=== PATIENT | female | born 1975 | race Caucasian/White ===

== ENCOUNTER → 2016-05-21 10:42 | Day surgery (SDC) | payer OTHER ==
[~2016-05-21 10:42] MED LIST: Buffered Lidocaine 1% SYRIN* 3 ML/SYR SYRINGE INTRADERM ONE; Bupivacaine 0.25% EPI 200,000* 30 ML SDV ONE; Bupivacaine 0.25% SDV* 30 ML ONE; Dexamethasone IV* 4 MG/ML 1 ML (4 MG) IV SLOW PU ONE; Dexamethasone IV* 4 MG/ML 1 ML (4 MG) ONE; Famotidine IV* 10 MG/ML 2 ML (20 mg) IV ONE; Famotidine IV* 10 MG/ML 2 ML (20 mg) ONE; Labetalol IV* 5 MG/ML 20 ML VIAL ONE; Lidocaine 2% PF* 5 ML VIAL ONE; Midazolam* 1 MG/ML 2 ML VIAL (2 MG) ONE; Ondansetron INJ* 2 MG/ML VIAL ONE; PROCHLORPERAZINE INJ 5 MG/ML 2 ML VIAL IV PRN; Propofol* 10 MG/ML 20 ML BTL IV PUSH ONE; ROPIVACAINE 5 MG/ML 30 ML BTL (0.5%) ONE; Rocuronium* 10 MG/ML VIAL ONE; ceFAZolin 2 GM PREMIX(*) 2 GM/50 ML BAG IVPB ONE; fentaNYL* 50 MCG/ML 2 ML VIAL (100 MCG VIAL) IV PRN; fentaNYL* 50 MCG/ML 2 ML VIAL (100 MCG VIAL) ONE; oxyCODONE/Acetamin 5/325 MG* TAB PO PRN
[2016-05-21 17:38] VITALS: BP 138/78
--- NOTE | 2016-05-22 10:33 | OP ---
DATE OF OPERATION: 05/21/16 - [facility] DATE OF : 71 ATTENDING SURGEON: Mindy Schwartz MD. ASSISTANTS: VICTORINO Arauz. An assistant buyer was needed for the entirety of case to help with positioning, retraction, and was utilized throughout all portion of the case. ANESTHESIOLOGIST: Lanette Graves MD. ANESTHESIA: General with interscalene block. PRE-OP DIAGNOSES: Right shoulder full-thickness rotator cuff tear of the supraspinatus tendon, biceps tendonitis and acromioclavicular joint arthritis. POST-OP DIAGNOSES: Right shoulder full-thickness rotator cuff tear of the supraspinatus tendon, biceps tendonitis and acromioclavicular joint arthritis. OPERATIVE PROCEDURES: 1. Right shoulder arthroscopy with glenohumeral debridement. 2. Subacromial decompression with acromioplasty. 3. Rotator cuff repair, double row. 4. Distal clavicle excision. 5. Subpectoral biceps tenodesis. ESTIMATED BLOOD LOSS: Minimal. COMPLICATIONS: None. IMPLANTS USED: Two Garza and Nephew 4.75 Healicoil and one Multifix, one Q-Fix anchor. INDICATIONS: Kylee Tse is a 41-year-old, thin, right-hand dominant female who tore her rotator cuff over a year ago. She had persistent pain. She was unable to get surgery until now due to personal issues. She has failed conservative management. She had some relief with injections that was temporary , where she has persistent pain and limitations in her activities at work. After extensive discussion, the risks and benefits to conservative versus operative management, the patient has agreed to proceed with surgery. Risks include but are not limited to, bleeding, infection, damage to nerves, vessels, surrounding structures, wound nonhealing, persistent pain, need for further surgery, stiffness, scarring, incomplete relief of symptoms, need for further surgery or failure of the repair, risks of DVT, and risks of anesthesia. She has elected to proceed. DESCRIPTION OF PROCEDURE: The patient was greeted in the preoperative area by the attending surgeon, the correct extremity was marked and the consent was confirmed. The patient was then brought back to the operating suite where she was placed in a supine position on the operating table. She then underwent interscalene nerve block by the attending anesthesiologist, which she tolerated without difficulty, after which the patient then underwent general anesthesia with endotracheal intubation. At this point, the patient was placed in the left lateral decubitus position. An axillary roll was placed and she was secured with a peg board. Her right arm was draped unsterile from the traction frame with 10 pounds of traction. The right arm was then prepped and draped in the usual sterile fashion, beginning with chlorhexidine scrub and alcohol wipe and the final prep with ChloraPrep. After appropriate surgical pause indicating side, site, procedure, and administration of antibiotics, the standard postero-lateral portal was made sharply with an 11 blade. The scope was introduced into the subacromial space. There was difficulty accessing the joint, therefore the subacromial work was done first. There is abundant bursa was that was present and a rotator cuff tear was present, a full-thickness supraspinatus anteriorly based tear. There was a moderate-sized anterolateral spur as well as AC joint arthritis. Decompression was then done and using the shaver device after the lateral portal was made in an outside-in fashion, then the AP joint was visualized and under needle localization, the anterior portal was then made to facilitate access to the AC joint. From this perspective, the switching stick was then placed after needle localization into the anterior recess of the shoulder joint. Once this was found, the switching stick was placed. Then cannulas were used to dilate and the scope was placed through the anterior cannula. This was found to visualize the glenohumeral joint, which had abundant tissue inside the joint itself. This facilitated access posteriorly and the posterior portal was then made in the usual standard fashion. The glenohumeral joint was examined. The biceps, there was evidence of damage to the ted with some mild irritation to the subscapularis. There was abundant thick tissue that was present anteriorly, that was similar to what is seen in adhesive capsulitis, but it was not taut tissue. The glenohumeral joint had grade 0 to 1 changes. The anterior posterior labrum had unstable fraying, superior labrum had unstable fraying and therefore a biceps tenotomy was done. The rotator cuff was found to have a full-thickness tear, supraspinatus tendon through the undersurface of the cuff. Anterior recess was intact. After the glenohumeral debridement was complete, attention was directed back to the subacromial space. At this point, the acromioplasty was done using a 4-0 oval beatrice, this then allowed us to co-plane the distal clavicle. All loose debris was removed and then attention was directed to the distal clavicle. The beatrice was positioned through the anterior portal, then under direct observation, 8 mm of the distal clavicle was carefully removed. There was abundant arthritis and the joint was quite stenotic. The bone was quite hard. Two burrs were required to debride the bone. Once adequate resection was done, the clavicle was then manipulated and there was no more impingement apparent. Next, attention was directed to the rotator cuff. The electrocautery device was used to complete the full tear to release the remaining supraspinatus tendon that was partially torn. The shaver was used to debride the edges back. The shaver, the electrocautery device, the rasp were all used to prepare the greater tuberosity. Once this was prepared, by gently decorticating the bone, two Healicoil anchors were placed. The bone quality was quite hard; therefore, the awl and tap had be used prior to anchor placement. The anchors were placed with excellent fixation. The sutures were passed through the cuff to the tissue, which had very good quality tissue. These were passed in a mattress configuration, then tied down. One strand of each knot was kept for later passes through a second anchor for double row fixation. Once the Multifix anchor was used to secure all four remaining sutures into the lateral row and this allowed to appropriately restore the footprints. The shoulder was taken through gentle range of motion and was found to be intact. All fluid and debris were removed from the shoulder at this point. Attention was directed to the biceps. The bed was airplaned to the right side. The anterior aspect of the shoulder was prepped again using ChloraPrep and a 15 blade was then used to make an incision in line with the biceps, encompassing the inferior two-thirds of the pec tendon. The soft tissues were carefully dissected using Metzenbaum scissors. Once the pectoralis fascia was identified, all the remainder dissection was done bluntly. The pec tendon was retracted superiorly. The biceps groove was palpated. The biceps was subluxed out of the groove. Carefully, the biceps screw was then nicked using the electrocautery device and the biceps was then removed using a right angle clamp. This was then brought through the wound and an image was obtained. There was tendinopathy and scarring of the biceps. The biceps groove was then prepped in the usual fashion with electrocautery device, the rasp and then the osteotome to allow for bleeding bony bed. The Q- Fix anchor was then unicortically drilled and deployed with excellent purchase. The sutures were then passed through the tendon approximately 1 cm proximal to the musculotendinous junction in a Iuhad-Ilrap-afpl configuration. The excess stump was then sharply excised and the biceps shuttled back into the wound and tied down. The wounds were copiously irrigated. The portals were closed with 0 nylon. The anterior wound was closed in layers of 2-0 Vicryl and 3-0 Monocryl. Sterile dressings were applied. 20 cc of Marcaine was injected into the anterior wound. A Cryo/Cuff as well as an UltraSling were placed. The patient was awoken from anesthesia and transferred to the PACU in stable condition. POSTOPERATIVE PLAN: She will be in a splint for 6 weeks. She will be nonweightbearing. She will be allowed to work on range of motion of her elbow, wrist, and hand and allow pendulums. She will be discharged on pain medication as well as antibiotics. DVT prophylaxis was considered and discussed, but deferred due to her previous personal or family history. I will see the patient back in 10 to 14 days. [id number]/[facility] #: [id number] DEB
== END | disposition home or self-care (01) ==
LOC: OREAST 10:42
PROVIDERS: ATTEND Orthopaedic Surgery
DX: M75.121 Complete rotator cuff tear or rupture of right shoulder, not specified as traumatic (principal); S46.101D Unspecified injury of muscle, fascia and tendon of long head of biceps, right arm, subsequent encounter; F41.9 Anxiety disorder, unspecified; K21.9 Gastro-esophageal reflux disease without esophagitis; M19.211 Secondary osteoarthritis, right shoulder; F17.200 Nicotine dependence, unspecified, uncomplicated; M65.9 Synovitis and tenosynovitis, unspecified
CPT/HCPCS: 88304; C1713; C1776; J0690; J1100; J2250; J2405; J2704; J2795; J3010

== ENCOUNTER 2017-02-20 15:27 | Emergency (ER) | payer OTHER ==
[2017-02-20 16:37] VITALS: BP 130/89
--- NOTE | 2017-02-20 16:38 | UC ---
Hip/Pelvis Pain - HPI Summary HPI Summary: 41 year old female presents with right upper thigh pain. - History Of Current Complaint Chief Complaint: UCLowerExtremity Stated Complaint: RIGHT HIP PAIN Time Seen by Provider: 02/20/17 16:38 Hx Obtained From: Patient Hx Last Menstrual Period: 12/10/15 ?: Yes Onset/Duration: Sudden Onset Severity Initially: Moderate Severity Currently: Moderate Pain Scale Used: 0-10 Numeric - 8 Character Of Pain: Throbbing Aggravating Factor(s): Weight Bearing - Allergies/Home Medications Allergies/Adverse Reactions: Allergies Allergy/AdvReac Type Severity Reaction Status Date / Time Shellfish-derived Products Allergy Severe Anaphylatic Verified 05/21/16 10:59 Shock Naproxen [From Naprosyn] Allergy Intermediate Hives Verified 05/21/16 10:59 Gabapentin Allergy Altered Verified 02/20/17 16:37 Mental Status PMH/Surg Hx/FS Hx/Imm Hx Previously Healthy: Yes - Surgical History Surgical History: Yes Surgery Procedure, Year, and Place: appy , [place]. gastric bipass [place]. , intraceception 2009 [place]. REMOVED SCAR TISSUE FROM ABDOMIN DONE 5 TIMES AFTER LOOSING WT [place]. 2003 GALL BLADDER [place]. 1987 LAPRASCOPIC SURGERY RIGHT KNEE [facility]. RT OOPHORECTOMY [place] - Family History Known Family History: Positive: Hypertension - Social History Alcohol Use: Weekly Alcohol Amount: 2-4 DRINKS/WEEK Substance Use Type: None Smoking Status (MU): Light Every Day Tobacco Smoker Type: Cigarettes Amount Used/How Often: 1 SINCE AGE 10 Length of Time of Smoking/Using Tobacco: 20 Years (Quit for 7) Have You Smoked in the Last Year: Yes When Did the Patient Quit Smoking/Using Tobacco: Dec 2013 Household Exposure Type: Cigarettes - Immunization History Most Recent Influenza Vaccination: Not the 2015/2015 Season Most Recent Pneumonia Vaccination: NOV 2012 Review of Systems Constitutional: Negative Skin: Negative Eyes: Negative ENT: Negative Respiratory: Negative Cardiovascular: Negative Gastrointestinal: Negative Genitourinary: Negative Motor: Negative Neurovascular: Negative Musculoskeletal: Other: - right upper thigh pain Neurological: Negative Psychological: Negative All Other Systems Reviewed And Are Negative: Yes Physical Exam Triage Information Reviewed: Yes Vital Signs: Initial Vital Signs Temp 37.3 C 02/20/17 16:34 Pulse 82 02/20/17 16:34 Resp 16 02/20/17 16:34 BP 130/89 02/20/17 16:34 Pulse Ox 100 02/20/17 16:34 Vital Signs Reviewed: Yes Eye Exam: Normal ENT Exam: Normal Dental Exam: Normal Neck exam: Normal Neck: Positive: 1 Respiratory Exam: Normal Cardiovascular Exam: Normal Abdominal Exam: Normal Musculoskeletal: Positive: Other: - right upper thigh pain Neurological Exam: Normal Psychological Exam: Normal Skin Exam: Normal Hip Injury Course/Dx - Differential Dx/Diagnosis Provider Diagnoses: right upper thigh pain Discharge - Discharge Plan Condition: Stable Disposition: OTHER Discharge Disposition Comment: patient suggested to go to the er Patient Education Materials: Hip Sprain (ED) Referrals: Kleber Baker PA [Primary Care Provider] - Additional Instructions: patient suggested to go to the er for right thigh pain and rule out dvt
== END 2017-02-20 16:46 ==
LOC: UCCORT 15:27
DX: M79.651 Pain in right thigh (principal); Z72.0 Tobacco use; Z72.89 Other problems related to lifestyle
CPT/HCPCS: 99212; G0463

== ENCOUNTER 2017-04-22 15:15 | Emergency (ER) | payer OTHER ==
[2017-04-22 15:35] VITALS: BP 118/79
--- NOTE | 2017-04-22 15:48 | ED ---
Throat Pain/Nasal Congestion - HPI Summary HPI Summary: 42 yr female with right ear pain and sinus congestion, post nasal drip progressive worse over 5-6 days. She states she has had fever and chills. Pain is moderate in the right ear. No other complaints. - History of Current Complaint Chief Complaint: UCGeneralIllness Time Seen by Provider: 04/22/17 15:33 - Allergies/Home Medications Allergies/Adverse Reactions: Allergies Allergy/AdvReac Type Severity Reaction Status Date / Time MS Shellfish-derived Products Allergy Severe Anaphylatic Verified 04/22/17 15:35 [Shellfish-derived Products] Shock MS Naproxen [From Naprosyn] Allergy Intermediate Hives Verified 04/22/17 15:35 MS Gabapentin [Gabapentin] Allergy Altered Verified 04/22/17 15:35 Mental Status PMH/Surg Hx/FS Hx/Imm Hx Endocrine/Hematology History: Denies: Hx Diabetes Cardiovascular History: Denies: Hx Hypertension, Hx Pacemaker/ICD GI History: Reports: Hx Gastroesophageal Reflux Disease - ON MED DAILY History: Reports: Hx Kidney Stones - Hx OF 2011, PASSED Denies: Hx Renal Disease Musculoskeletal History: Reports: Hx Arthritis - RT SHOULDER Sensory History: Reports: Hx Contacts or Glasses - GLASSES Denies: Hx Hearing Aid Opthamlomology History: Reports: Hx Contacts or Glasses - GLASSES Psychiatric History: Denies: Hx Panic Disorder - Surgical History Surgery Procedure, Year, and Place: appy , [place]. gastric bipass [place]. , intraceception 2009 [place]. REMOVED SCAR TISSUE FROM ABDOMIN DONE 5 TIMES AFTER LOOSING WT [place]. 2003 GALL BLADDER [place]. 1987 LAPRASCOPIC SURGERY RIGHT KNEE [facility]. 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, ~ 2004 Denies: Traveled Outside the [place] in Last 30 Days - Family History Known Family History: Positive: Hypertension - Social History Alcohol Use: Weekly Alcohol Amount: 2-4 DRINKS/WEEK Substance Use Type: Reports: None Smoking Status (MU): Light Every Day Tobacco Smoker Type: Cigarettes Amount Used/How Often: 1 SINCE AGE 10 Length of Time of Smoking/Using Tobacco: 20 Years (Quit for 7) Have You Smoked in the Last Year: Yes Review of Systems Positive: Fever, Chills Positive: Ear Ache, Nasal Discharge, Other - sinus pressure All Other Systems Reviewed And Are Negative: Yes Physical Exam Triage Information Reviewed: Yes Vital Signs On Initial Exam: Initial Vitals Temp Pulse Resp BP Pulse Ox 99.5 F 71 16 118/79 100 04/22/17 15:31 04/22/17 15:31 04/22/17 15:31 04/22/17 15:31 04/22/17 15:31 Vital Signs Reviewed: Yes Appearance: Positive: Well-Appearing, No Pain Distress Skin: Positive: Warm, Skin Color Reflects Adequate Perfusion Head/Face: Positive: Normal Head/Face Inspection Eyes: Positive: EOMI ENT: Positive: Pharynx normal, TM red - right ear with effusion, and bulging with some erythema, Sinus tenderness Neck: Positive: Nontender Respiratory/Lung Sounds: Positive: Clear to Auscultation, Breath Sounds Present Cardiovascular: Positive: RRR. Negative: Murmur Abdomen Description: Positive: Nontender Musculoskeletal: Positive: Strength/ROM Intact Neurological: Positive: Sensory/Motor Intact, Alert, Oriented to Person Place, Time, CN Intact II-III Psychiatric: Positive: Normal - Angelia Coma Scale Best Eye Response: 4 - Spontaneous Best Motor Response: 6 - Obeys Commands Best Verbal Response: 5 - Oriented Coma Scale Total: 15 Diagnostics - Vital Signs Vital Signs Temp Pulse Resp BP Pulse Ox 04/22/17 15:31 99.5 F 71 16 118/79 100 - Laboratory Lab Statement: Any lab studies that have been ordered have been reviewed, and results considered in the medical decision making process. EENT Course/Dx - Course Course Of Treatment: 42 yr old female with right OM and sinusitis. Rx with augmentin. - Diagnoses Provider Diagnoses: Sinusitis, Otitis media Discharge - Discharge Plan Condition: Good Disposition: HOME Prescriptions: Amoxicillin/Clavulanate TAB* [Augmentin TAB 875*] 875 mg PO BID #20 tab Patient Education Materials: Sinusitis (ED), Ear Infection (ED) Referrals: Kleber Baker PA [Primary Care Provider] - 2 Days
== END 2017-04-22 15:52 | disposition home or self-care (01) ==
LOC: UCCORT 15:15
DX: J32.9 Chronic sinusitis, unspecified (principal); H66.91 Otitis media, unspecified, right ear; Z88.8 Allergy status to other drugs, medicaments and biological substances; Z91.013 Allergy to seafood; F17.210 Nicotine dependence, cigarettes, uncomplicated
CPT/HCPCS: 99212; G0463

== ENCOUNTER 2018-02-26 14:06 | Emergency (ER) | payer OTHER ==
[2018-02-26 15:13] VITALS: BP 151/88
--- NOTE | 2018-02-26 16:22 | UC ---
Upper Extremity HPI - HPI Summary HPI Summary: 42 y/o female with no pmh, no medications, while reaching up this afternoon, looking up, had pain between shoulder and neck, sharp- 4/10 at rest, 7/10 with movemnet. no improvement with massage at work, anti-inflammatory. mild tingling in finger tips, no other symptoms. no trauma, no neck complaints in past. sensation intact. - History of Current Complaint Chief Complaint: UCBackPain Stated Complaint: NECK PAIN Time Seen by Provider: 02/26/18 16:03 Hx Obtained From: Patient Hx Last Menstrual Period: 04/10/17 Onset/Duration: Sudden Onset, Lasting Hours Severity Initially: Moderate Severity Currently: Moderate Pain Intensity: 7 Pain Scale Used: 0-10 Numeric - Allergies/Home Medications Allergies/Adverse Reactions: Allergies Allergy/AdvReac Type Severity Reaction Status Date / Time shellfish derived Allergy Severe Anaphylatic Verified 02/26/18 15:15 Shock naproxen Allergy Intermediate Hives Verified 02/26/18 15:15 gabapentin Allergy Altered Verified 02/26/18 15:15 Mental Status PMH/Surg Hx/FS Hx/Imm Hx Previously Healthy: Yes - Surgical History Surgical History: Yes Surgery Procedure, Year, and Place: appy ', [place]. gastric bipass [facility]. , intraceception 2009 [place]. REMOVED SCAR TISSUE FROM ABDOMIN DONE 5 TIMES AFTER LOOSING WT [place]. 2003 GALL BLADDER [place]. 1987 LAPRASCOPIC SURGERY RIGHT KNEE [facility]. RT OOPHORECTOMY [place] - Family History Known Family History: Positive: Hypertension - Social History Alcohol Use: Weekly Alcohol Amount: 2-4 DRINKS/WEEK Substance Use Type: None Smoking Status (MU): Light Every Day Tobacco Smoker Type: Cigarettes Amount Used/How Often: 1 SINCE AGE 10 Length of Time of Smoking/Using Tobacco: 20 Years (Quit for 7) Have You Smoked in the Last Year: Yes When Did the Patient Quit Smoking/Using Tobacco: Dec 2013 Household Exposure Type: Cigarettes - Immunization History Most Recent Influenza Vaccination: Not the 2015/2015 Season Most Recent Pneumonia Vaccination: NOV 2012 Review of Systems All Other Systems Reviewed And Are Negative: Yes Musculoskeletal: Positive: Arthralgia, Myalgia Is Patient Immunocompromised?: No Physical Exam Triage Information Reviewed: Yes Appearance: Well-Appearing, No Pain Distress, Well-Nourished Vital Signs: Initial Vital Signs Temp 98.4 F 02/26/18 15:09 Pulse 77 02/26/18 15:09 Resp 16 02/26/18 15:09 BP 151/88 02/26/18 15:09 Pulse Ox 100 02/26/18 15:09 Vital Signs Reviewed: Yes Eyes: Positive: Conjunctiva Clear Musculoskeletal: Positive: Strength Intact - R upper extremity- shoulder full ROM, strength 5/5, 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 TTP over trap R side with muscle spasms palpable at anterior mid. full ROM of neck, non-tender to palpation over neck. Neurological: Positive: Alert, Muscle Tone Normal Psychological Exam: Normal Skin Exam: Normal Upper Extremity Course/Dx - Course Course Of Treatment: muscle spams, valium for muslce relaxer given, prednisone x 3 days, lidoderm patch for pain - Differential Dx/Diagnosis Differential Diagnosis/HQI/PQRI: Bursitis, Contusion Provider Diagnosis: Muscle spasm Discharge - Sign-Out/Discharge Documenting (check all that apply): Patient Departure All imaging exams completed and their final reports reviewed: No Studies - Discharge Plan Condition: Good Disposition: HOME Prescriptions: Diazepam TAB(*) [Valium TAB(*)] 5 mg PO BEDTIME PRN #5 tab MDD 1 PRN Reason: muscle spasm Lidocaine PATCH 5%* [Lidoderm 5% Patch*] 1 patch TRANSDERM DAILY #10 patch predniSONE [Prednisone 20 MG TAB] 20 mg PO DAILY #3 tablet Patient Education Materials: Muscle Spasm (ED) Forms: *Work Release Referrals: Kleber Baker PA [Primary Care Provider] - Additional Instructions: - Heat to area - Valium as needed for muscle spasm - Lidoderm patch for pain control during the day - Prednisone to decrease inflammation, swelling - increase fluids - Billing Disposition and Condition Condition: GOOD Disposition: Home - Attestation Statements Provider Attestation: Per institutional requirements, I have reviewed the chart, however, I was not consulted specifically or made aware of this patient by the midlevel provider. I did not personally evaluate, interact with , or disposition this patient.
== END 2018-02-26 16:22 | disposition home or self-care (01) ==
LOC: UCCORT 14:06
DX: M62.838 Other muscle spasm (principal); Z88.6 Allergy status to analgesic agent; Z88.8 Allergy status to other drugs, medicaments and biological substances
CPT/HCPCS: 99212; G0463

== ENCOUNTER 2018-08-07 16:25 | Emergency (ER) | payer OTHER ==
[2018-08-07 17:01] VITALS: BP 131/90
--- NOTE | 2018-08-07 17:25 | UC ---
Throat Pain/Nasal Thomas HPI - HPI Summary HPI Summary: Sinus pressure and congestion x4 days. Radiates to left ear pain with sore throat x2 days. Feels its mostly pressure in her face. sick contacts at work. Feels she had a fever on first two days. - History of Current Complaint Chief Complaint: UCGeneralIllness Stated Complaint: SINUSES,LEFT EAR Time Seen by Provider: 08/07/18 17:03 Hx Obtained From: Patient Hx Last Menstrual Period: 06/2018 Pain Intensity: 8 Pain Scale Used: 0-10 Numeric Cough: Nonproductive Associated Signs & Symptoms: Negative: Wheezing - Allergies/Home Medications Allergies/Adverse Reactions: Allergies Allergy/AdvReac Type Severity Reaction Status Date / Time shellfish derived Allergy Severe Anaphylatic Verified 08/07/18 16:58 Shock naproxen Allergy Intermediate Hives Verified 08/07/18 16:58 gabapentin Allergy Altered Verified 08/07/18 16:58 Mental Status Home Medications: Home Medications Acetaminophen TAB* [Tylenol TAB*] 975 mg PO ONCE PRN 08/07/18 [History Confirmed 08/07/18] Ibuprofen TAB* [Advil TAB*] 800 mg PO Q6H PRN 08/07/18 [History Confirmed ] LevoCETirizine TAB (NF) [Xyzal TAB (NF)] 5 mg PO DAILY 08/07/18 [History Confirmed 08/07/18] Pseudoephedrine TAB* [Sudafed TAB*] 60 mg PO Q6H PRN 08/07/18 [History Confirmed 08/07/18] PMH/Surg Hx/FS Hx/Imm Hx - Additional Past Medical History Additional PMH: no chronic conditions Previously Healthy: Yes - Surgical History Surgical History: Yes Surgery Procedure, Year, and Place: appy , [place]. gastric bipass [facility]. , intraceception 2009 [place]. REMOVED SCAR TISSUE FROM ABDOMIN DONE 5 TIMES AFTER LOOSING WT [place]. 2003 GALL BLADDER [place]. 1987 LAPRASCOPIC SURGERY RIGHT KNEE [facility]. RT OOPHORECTOMY [place]. R shoulder - Family History Known Family History: Positive: Hypertension - Social History Alcohol Use: Occasionally Alcohol Amount: 2-4 DRINKS/WEEK Substance Use Type: None Smoking Status (MU): Former Smoker Type: Cigarettes Amount Used/How Often: 1 SINCE AGE 10 Length of Time of Smoking/Using Tobacco: 20 Years (Quit for 7) Have You Smoked in the Last Year: Yes When Did the Patient Quit Smoking/Using Tobacco: 2018 Household Exposure Type: Cigarettes - Immunization History Most Recent Influenza Vaccination: Not the Season Most Recent Pneumonia Vaccination: NOV 2012 Review of Systems All Other Systems Reviewed And Are Negative: Yes Constitutional: Positive: Fever. Negative: Chills, Fatigue Skin: Negative: Rash Eyes: Negative: Drainage ENT: Positive: Sore Throat, Ear Ache, Nasal Discharge, Sinus Congestion, Sinus Pain/Tenderness. Negative: Dental Pain Respiratory: Positive: Cough. Negative: Shortness Of Breath Cardiovascular: Positive: Negative Neurological: Negative: Headache Physical Exam Triage Information Reviewed: Yes Appearance: Well-Appearing Vital Signs: Initial Vital Signs Temp 98.2 F 08/07/18 16:55 Pulse 77 08/07/18 16:55 Resp 15 08/07/18 16:55 BP 131/90 08/07/18 16:55 Pulse Ox 100 08/07/18 16:55 Vital Signs Reviewed: Yes Eyes: Positive: Conjunctiva Clear ENT: Positive: Pharynx normal, TMs normal, Uvula midline. Negative: Sinus tenderness Neck: Positive: No Lymphadenopathy Respiratory Exam: Normal Cardiovascular Exam: Normal Neurological: Positive: Alert Throat Pain/Nasal Course/Dx - Course Course Of Treatment: Sinusitis w/ cough. Exam did not demonstrate anything concerning, likely viral. Vitals are good. Discussed benefits/ risks of antibx usage but pt. wanted this ordered and she would knot picker cloth if it does not improved or if she develops fever again. advised to follow up with pcp if not improving. - Differential Dx/Diagnosis Differential Diagnosis/HQI/PQRI: Pharyngitis, Tonsillitis, URI Provider Diagnosis: Sinusitis Discharge - Sign-Out/Discharge Documenting (check all that apply): Patient Departure All imaging exams completed and their final reports reviewed: No Studies - Discharge Plan Condition: Good Disposition: HOME Prescriptions: Amoxicillin/Clavulanate TAB* [Augmentin TAB 875*] 875 mg PO BID 5 Days #10 tab Patient Education Materials: Sinusitis (ED) Referrals: Kleber Baker PA [Primary Care Provider] - Additional Instructions: please follow up with pcp if not improving. - Billing Disposition and Condition Condition: GOOD Disposition: Home
== END 2018-08-07 17:35 | disposition home or self-care (01) ==
LOC: UCCORT 16:25
DX: J32.9 Chronic sinusitis, unspecified (principal); Z87.891 Personal history of nicotine dependence
CPT/HCPCS: 99212; G0463

== ENCOUNTER 2019-04-08 08:16 | Emergency (ER) | payer OTHER ==
[2019-04-08 08:57] VITALS: BP 116/75
[2019-04-08 09:32] LABS: Influenza A Molecular Negative (Negative); Influenza B Molecular Negative (Negative)
--- NOTE | 2019-04-08 10:01 | UC ---
Throat Pain/Nasal Thomas HPI - HPI Summary HPI Summary: Pt c/o nasal congestion, cough, chest congestion, sinus pressure and pain X 1 week. - History of Current Complaint Chief Complaint: UCGeneralIllness Stated Complaint: CONGESTION,COUGH Time Seen by Provider: 04/08/19 09:55 Hx Obtained From: Patient Hx Last Menstrual Period: n/a r/t uterine ablation ?: No Onset/Duration: Gradual Onset, Lasting Days, Still Present, Worse Since - onset Severity: Moderate Pain Intensity: 4 Cough: Nonproductive Associated Signs & Symptoms: Positive: Dysphagia, Sinus Discomfort, Fever - Epiglottits Risk Factors Epiglottis Risk Factors: Negative - Allergies/Home Medications Allergies/Adverse Reactions: Allergies Allergy/AdvReac Type Severity Reaction Status Date / Time shellfish derived Allergy Severe Anaphylatic Verified 04/08/19 08:51 Shock naproxen Allergy Intermediate Hives Verified 04/08/19 08:51 gabapentin Allergy Altered Verified 04/08/19 08:51 Mental Status Home Medications: Home Medications diphenhydrAMINE HCl [Benadryl Allergy] 25 mg PO ONCE 04/08/19 [History Confirmed 04/08/19] PMH/Surg Hx/FS Hx/Imm Hx Previously Healthy: Yes - Surgical History Surgical History: Yes Surgery Procedure, Year, and Place: app[place] , [facility]. gastric bipass [facility]. intraceception 2009 [place]. REMOVED SCAR TISSUE FROM ABDOMIN DONE 5 TIMES AFTER LOOSING WT [place]. 2003 GALL BLADDER [place]. 1987 LAPRASCOPIC SURGERY RIGHT KNEE [facility]. RT OOPHORECTOMY [facility]. R shoulder. uterine ablation 2017 - Family History Known Family History: Positive: Hypertension - Social History Occupation: Employed Full-time Lives: With Family Alcohol Use: Occasionally Alcohol Amount: 2-4 DRINKS/WEEK Substance Use Type: None Smoking Status (MU): Former Smoker Type: Cigarettes Amount Used/How Often: 1 SINCE AGE 10 Length of Time of Smoking/Using Tobacco: 20 Years (Quit for 7) Have You Smoked in the Last Year: Yes When Did the Patient Quit Smoking/Using Tobacco: 2018 Household Exposure Type: Cigarettes - Immunization History Most Recent Influenza Vaccination: Not the 2015/2016 Season Most Recent Pneumonia Vaccination: NOV 2012 Review of Systems All Other Systems Reviewed And Are Negative: Yes Constitutional: Positive: Fever, Chills, Fatigue Skin: Positive: Negative Eyes: Positive: Negative ENT: Positive: Sore Throat, Sinus Congestion, Sinus Pain/Tenderness Respiratory: Positive: Cough Cardiovascular: Positive: Negative Gastrointestinal: Positive: Negative Genitourinary: Positive: Negative Motor: Positive: Negative Neurovascular: Positive: Negative Musculoskeletal: Positive: Myalgia Neurological/Mental Status: Positive: Headache Psychological: Positive: Negative Is Patient Immunocompromised?: No Physical Exam Triage Information Reviewed: Yes Appearance: Ill-Appearing Vital Signs: Initial Vital Signs Temp 99.3 F 04/08/19 08:52 Pulse 75 04/08/19 08:52 Resp 15 04/08/19 08:52 BP 116/75 04/08/19 08:52 Pulse Ox 100 04/08/19 08:52 Vital Signs Reviewed: Yes Eye Exam: Normal ENT: Positive: Nasal congestion, Sinus tenderness Dental Exam: Normal Neck exam: Normal Respiratory Exam: Normal Cardiovascular Exam: Normal Musculoskeletal Exam: Normal Neurological Exam: Normal Psychological Exam: Normal Skin Exam: Normal Throat Pain/Nasal Course/Dx - Differential Dx/Diagnosis Differential Diagnosis/HQI/PQRI: Influenza, Pharyngitis, Sinusitis, URI Provider Diagnosis: Sinusitis, Cough Discharge ED - Sign-Out/Discharge Documenting (check all that apply): Patient Departure All imaging exams completed and their final reports reviewed: No Studies - Discharge Plan Condition: Stable Disposition: HOME Prescriptions: Amoxicillin PO (*) [Amoxicillin 875 MG (*)] 875 mg PO Q12H #20 tab Benzonatate CAP* [Tessalon 100 MG CAP*] 100 - 200 mg PO Q8H PRN #30 cap PRN Reason: Cough Fluconazole 150 MG TAB* [Diflucan 150 MG TAB*] 150 mg PO UC ONCE #2 tablet Guaifenesin/Pseudoephedrne HCl [Mucinex D ER 600-60 mg Tablet] 1 each PO Q12H # 14 tab.er.12h predniSONE 10 mg TAB [Deltasone 10 MG TAB*] 30 mg PO DAILY #12 tab Patient Education Materials: Sinusitis (ED) Forms: *Work Release Referrals: [facility] [Outside] No Primary Care Phys,NOPCP [Primary Care Provider] - - Billing Disposition and Condition Condition: STABLE Disposition: Home
== END 2019-04-08 10:11 | disposition home or self-care (01) ==
LOC: UCCORT 08:16
DX: J32.9 Chronic sinusitis, unspecified (principal); R05 Cough; Z91.013 Allergy to seafood; Z88.6 Allergy status to analgesic agent; Z88.8 Allergy status to other drugs, medicaments and biological substances
CPT/HCPCS: 87651; 99212; G0463

== ENCOUNTER 2019-05-28 09:42 | Emergency (ER) | payer OTHER ==
[2019-05-28 09:57] VITALS: BP 130/89
--- NOTE | 2019-05-28 09:58 | UC ---
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 Increase in pain in the right shoulder and neck following the injury. --history of right rotator cuff injury in 2014. Concerned as she has had surgical repair of the right rotator cuff in the past. Tried heat last night without much relief. - History of Current Complaint Stated Complaint: RT SHOULDER INJURY Hx Obtained From: Patient Hx Last Menstrual Period: ablation Onset/Duration: Sudden Onset, Lasting Days - injury occurred yesterday Timing: Constant Severity Initially: Moderate Severity Currently: Moderate Pain Intensity: 6 Character: Dull, Aching Aggravating Factor(s): Movement Alleviating Factor(s): Rest, OTC Meds - used damaris without relief of pain. Associated Signs And Symptoms: Positive: Numbness/Tingling - off and on in the right digits. Related History: Dominant Hand Right - Risk Factors Non-Orthopedic Risk Factor: Negative DVT Risk Factors: Negative Septic Arthritis Risk Factor: Negative - Allergies/Home Medications Allergies/Adverse Reactions: Allergies Allergy/AdvReac Type Severity Reaction Status Date / Time shellfish derived Allergy Severe Anaphylatic Verified 04/08/19 08:51 Shock naproxen Allergy Intermediate Hives Verified 04/08/19 08:51 gabapentin Allergy Altered Verified 04/08/19 08:51 Mental Status Home Medications: Home Medications Cyclobenzaprine TAB* [Flexeril 10 MG TAB*] 10 mg PO DAILY PRN #20 tab 05/28/19 [ Rx] Nabumetone 500 mg PO BID #40 tablet 05/28/19 [Rx] PMH/Surg Hx/FS Hx/Imm Hx Previously Healthy: Yes - Surgical History Surgical History: Yes Surgery Procedure, Year, and Place: [facility], [place]. gastric bipass [facility]. intraceception 2009 [place]. REMOVED SCAR TISSUE FROM ABDOMIN DONE 5 TIMES AFTER LOOSING WT [place]. 2003 GALL BLADDER [place]. 1987 LAPRASCOPIC SURGERY RIGHT KNEE [facility]. RT OOPHORECTOMY [place]. R shoulder. uterine ablation 2017 - Family History Known Family History: Positive: Hypertension - Social History Occupation: Employed Full-time Lives: With Family Alcohol Use: Occasionally Alcohol Amount: 2-4 DRINKS/WEEK Substance Use Type: None Smoking Status (MU): Former Smoker Type: Cigarettes Amount Used/How Often: 1 SINCE AGE 10 Length of Time of Smoking/Using Tobacco: 20 Years (Quit for 7) Have You Smoked in the Last Year: Yes When Did the Patient Quit Smoking/Using Tobacco: 2018 Household Exposure Type: Cigarettes - Immunization History Most Recent Influenza Vaccination: Not the Season Most Recent Pneumonia Vaccination: NOV 2012 Review of Systems All Other Systems Reviewed And Are Negative: Yes Constitutional: Positive: Negative Skin: Positive: Bruising - states forearms feel bruised. Eyes: Positive: Negative ENT: Positive: Negative Respiratory: Positive: Negative Cardiovascular: Positive: Negative Gastrointestinal: Positive: Negative Genitourinary: Positive: Negative Motor: Positive: Decreased ROM Neurovascular: Positive: Negative Musculoskeletal: Positive: Arthralgia, Myalgia - pain in traps Neurological/Mental Status: Positive: Negative Physical Exam Triage Information Reviewed: Yes Appearance: Well-Appearing, Pain Distress - moderate Vital Signs: Initial Vital Signs Temp 98.2 F 05/28/19 09:53 Pulse 79 05/28/19 09:53 Resp 14 05/28/19 09:53 BP 130/89 05/28/19 09:53 Pulse Ox 100 05/28/19 09:53 Vital Signs Reviewed: Yes Eye Exam: Normal Neck: Positive: Supple, No Lymphadenopathy, Tenderness @ - right trapezius Respiratory: Positive: Lungs clear, Normal breath sounds Cardiovascular: Positive: RRR, No Murmur Musculoskeletal: Positive: ROM Limited @ - right shoulder with active abduction limited to about 45 degrees, but passive rom to 90 degrees. Anterior extension is normal. Pain with ER and IR Neurological Exam: Normal Neurological: Positive: Muscle Tone Normal Psychological Exam: Normal Skin Exam: Normal Diagnostics - Radiology No standard instances Radiology Interpretation Completed By: ED Physician - Normal right shoulder, no dislocation Shoulder Course/Dx - Course Course Of Treatment: Sling, ice, referral to orthopedics for evaluation. - Differential Dx/Diagnosis Differential Diagnosis/HQI/PQRI: Contusion, Dislocation, Rotator Cuff Injury, Sprain Provider Diagnosis: Right shoulder strain, Cervical muscle strain Discharge ED - Sign-Out/Discharge Documenting (check all that apply): Patient Departure All imaging exams completed and their final reports reviewed: No - Discharge Plan Condition: Stable Disposition: HOME Prescriptions: Cyclobenzaprine TAB* [Flexeril 10 MG TAB*] 10 mg PO DAILY PRN #20 tab PRN Reason: Spasms - Neck Nabumetone 500 mg PO BID #40 tablet Patient Education Materials: Shoulder Pain (ED) Forms: *Work Release Referrals: No Primary Care Phys,NOPCP [Primary Care Provider] - Bill Whitt MD [Medical Doctor] - Additional Instructions: Please call orthopedics to arrange an evaluation of your shoulder. Ice to the joint might be better for the acute pain, although heat is more helpful for the tight neck muscles. Use nabumetone twice daily; take with food and stop if it causes stomach upset. Use muscle relaxant at night to improve sleep. - Billing Disposition and Condition Condition: STABLE Disposition: Home
--- NOTE | 2019-05-28 12:00 | UC ---
- Progress Note Progress Note: Reviewed Dr. Aviles's reading: no acute injury. Course/Dx - Diagnoses Provider Diagnoses: Right shoulder strain, Cervical muscle strain Discharge ED - Sign-Out/Discharge Documenting (check all that apply): Post-Discharge Follow Up All imaging exams completed and their final reports reviewed: Yes - Discharge Plan Condition: Stable Disposition: HOME Prescriptions: Cyclobenzaprine TAB* [Flexeril 10 MG TAB*] 10 mg PO DAILY PRN #20 tab PRN Reason: Spasms - Neck Nabumetone 500 mg PO BID #40 tablet Patient Education Materials: Shoulder Pain (ED) Forms: *Work Release Referrals: Bill Whitt MD [Medical Doctor] - No Primary Care Phys,NOPCP [Primary Care Provider] - Additional Instructions: Please call orthopedics to arrange an evaluation of your shoulder. Ice to the joint might be better for the acute pain, although heat is more helpful for the tight neck muscles. Use nabumetone twice daily; take with food and stop if it causes stomach upset. Use muscle relaxant at night to improve sleep. - Billing Disposition and Condition Condition: STABLE Disposition: Home
== END 2019-05-28 12:00 | disposition home or self-care (01) ==
LOC: UCCORT 09:42
DX: S46.911A Strain of unspecified muscle, fascia and tendon at shoulder and upper arm level, right arm, initial encounter (principal); S16.1XXA Strain of muscle, fascia and tendon at neck level, initial encounter; W01.0XXA Fall on same level from slipping, tripping and stumbling without subsequent striking against object, initial encounter; Y93.01 Activity, walking, marching and hiking; Y92.9 Unspecified place or not applicable; Z88.8 Allergy status to other drugs, medicaments and biological substances; Z88.6 Allergy status to analgesic agent; Z91.013 Allergy to seafood; Z87.891 Personal history of nicotine dependence
CPT/HCPCS: 99213; G0463